=== PATIENT | female | born 1990 | race Caucasian/White ===

== ENCOUNTER → 2016-03-23 | Outpatient (CLI) | payer OTHER ==
[2016-03-23 13:53] LABS: BASO % 0.5 % (0.0-1.0); EOS # 0.2 K/mm3 (0.0-0.50); EOS % 2.6 % (0.0-3.0); LARGE UNSTAINED CELL # 0.2 K/mm3 (0.0-0.4); LARGE UNSTAINED CELL % 2.3 % (0.0-4.0); LYMPH # 1.1 K/mm3 (1.5-6.5); LYMPH % 16.8 % (24.0-44.0); MEAN CORPUSCULAR HEMOGLOBIN 30.3 pg (27.0-33.0); MEAN CORPUSCULAR HGB CONC 33.4 g/dl (32.0-36.5); MEAN CORPUSCULAR VOLUME 90.9 fl (80.0-96.0); MONO # 0.3 K/mm3 (0.0-0.8); MONO % 3.8 % (0.0-5.0); NEUTROPHILS # 4.9 K/mm3 (1.8-7.7); PLATELET COUNT, AUTOMATED 339 k/mm3 (150-450); RED CELL DISTRIBUTION WIDTH 12.4 % (11.5-14.5); WHITE BLOOD COUNT 6.7 K/mm3 (4.0-10.0)
== END ==
LOC: M LAB 12:08
PROVIDERS: ATTEND Obstetrics & Gynecology
DX: Z34.02 Encounter for supervision of normal first pregnancy, second trimester (principal)

== ENCOUNTER → 2016-04-12 | Outpatient (REF) | payer OTHER | LOC: M LAB REF 16:51 | PROVIDERS: ATTEND Advanced Practice Midwife | DX: Z34.03 Encounter for supervision of normal first pregnancy, third trimester (principal) ==

== ENCOUNTER → 2016-05-25 | Outpatient (REF) | payer OTHER | LOC: M LAB REF 13:22 | PROVIDERS: ATTEND Advanced Practice Midwife | DX: Z34.03 Encounter for supervision of normal first pregnancy, third trimester (principal) ==

== ENCOUNTER 2016-06-25 01:37 | Inpatient (IN) | payer OTHER ==
[2016-06-25] VITALS (9 sets, daily range): BP systolic 99–134; BP diastolic 50–80
[~2016-06-25] VITALS: Ht 162.6 cm; Wt 72.0 kg
[2016-06-25] MEDS ORDERED: PENICILLIN G POTASSIUM IV 5 MU in D5W MINI-BAG PLUS 100 ML IV STA (02:08)
[2016-06-25] MEDS ORDERED: LR 1,000 ML IV SCH (02:08)
[2016-06-25] MEDS ORDERED: LACTATED RINGER'S 1000 ML IV STA (02:08)
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
[2016-06-25] MEDS ORDERED: FENTANYL 2MCG/ML ROPIVACAINE 0.2% IN 0.9% NACL 200ML IVBAG As Ordered ONE (03:19)
[2016-06-25] MEDS ORDERED: NALOXONE INJ 0.4 MG/1 ML VIAL (J2310) IV PRN (04:07)
[2016-06-25] MEDS ORDERED: EPIDURAL COMMENT XX SCH (04:07)
[2016-06-25] MEDS ORDERED: diphenhydrAMINE INJ 50MG/ML VIAL (J1200) IV PRN (04:07)
[2016-06-25] MEDS ORDERED: ONDANSETRON 4MG/2ML VIAL (J2405) IV PRN (04:07)
[2016-06-25] MEDS ORDERED: REFRIGERATOR IV KEYS XX PRN (04:07)
[2016-06-25] MEDS ORDERED: LACTATED RINGER'S 1000 ML IV PRN (04:07)
[2016-06-25] MEDS ORDERED: FENTANYL/ROPIVACAINE/NACL BAG 200 ML EPIDURAL SCH (04:07)
[2016-06-25] MEDS ORDERED: ePHEDrine SULFATE 25 MG/5 ML(5MG/ML) SYRINGE IV PRN (04:07)
[2016-06-25] MEDS ORDERED: EPIDURAL/PCA KEYS XX PRN (04:07)
--- NOTE | 2016-06-25 04:40 | IPNPDOC ---
Date Seen The patient was seen on 06/25/16. Progress Note SUBJECTIVE: Patient reports she is comfortable with her epidural. OBJECTIVE: heart rate 1:30, moderate variability, positive accelerations, no decelerations. Contractions every 2-4 minutes. SVE: 5/90/0 station. AROM done after consent from patient to a scant amount of clear fluid. A moderate amount of bloody show noted. ASSESSMENT: IUP of 40 weeks 3 days gestation, active labor, category 1 heart rate tracing PLAN: Pitocin via IV ordered after counseling patient. Anticipate cervical change and spontaneous vaginal delivery. GURMEET PUGA CNM Jun 25, 2016 04:40
[2016-06-25] MEDS ORDERED: OXYTOCIN DRIP 30 UNITS in APPROPRIATE DILUENT 1 EA IV SCH (04:45)
[2016-06-25] MEDS ORDERED: PENICILLIN G POTASSIUM IV 2.5 MU in D5W 100 ML IV SCH (06:30)
[2016-06-25] MEDS: DOCUSATE SODIUM 100 MG CAP PO SCH ×2 (09:00→21:31)
[2016-06-25] MEDS: PRENATAL VITAMIN TAB PO SCH (09:00)
[2016-06-25] MEDS ORDERED: MEASLES,MUMPS,RUBELLA VACCINE INJ (MMR-II) (90707) SC SCH (10:00)
[2016-06-25] MEDS ORDERED: DIBUCAINE 1% OINTMENT 30GM TOP PRN (10:00)
[2016-06-25] MEDS ORDERED: METHYLERGONOVINE MALEATE 0.2 MG TAB PO PRN (10:00)
[2016-06-25] MEDS ORDERED: RHOGAM 300 MCG (1500 IU) INJ (J2790) IM SCH (10:00)
[2016-06-25] MEDS ORDERED: ACETAMINOPHEN 500 MG TAB PO PRN (10:00)
--- NOTE | 2016-06-25 10:34 | DN ---
DATE: 06/25/2016 Cherie is a 26-year-old female, 1, para 0 who was admitted at 40-3/7 weeks gestation in labor. She progressed to fully dilated after having an epidural with Pitocin augmentation with deep variable deceleration. She then pushed and delivered a live male infant in occiput posterior position with a nuchal cord times one. scores 8 and 9. weight 7 pounds. Placenta delivered spontaneously intact. Three-vessel cord. The second-degree midline laceration was noted, which was repaired using #2-0 chromic. Estimated blood loss 200 mL. Both mother and baby in stable condition.
[2016-06-25] MEDS: IBUPROFEN 800 MG TAB PO PRN ×2 (12:34→21:33)
[2016-06-26 05:27] VITALS: BP 123/62
[2016-06-26] MEDS: DOCUSATE SODIUM 100 MG CAP PO SCH (09:06)
[2016-06-26] MEDS: PRENATAL VITAMIN TAB PO SCH (09:06)
[2016-06-26 18:00] VITALS: BP 129/64
[2016-06-27 05:30] VITALS: BP 113/60
[2016-06-27] MEDS: DOCUSATE SODIUM 100 MG CAP PO SCH (07:35)
[2016-06-27] MEDS: PRENATAL VITAMIN TAB PO SCH (07:35)
[2016-06-27] MEDS ORDERED: TYLE500T78 PO (14:13)
[2016-06-27] MEDS ORDERED: PRENTAB55 PO (14:13)
[2016-06-27] MEDS ORDERED: IBUP800T23 PO (14:13)
== END 2016-06-27 17:15 | disposition home or self-care (01) | DRG 775 ==
LOC: M LDO 01:37 → M LDI 01:47 → M OBS 12:25
PROVIDERS: ADMIT Advanced Practice Midwife; ATTEND Obstetrics & Gynecology
PROC: 10E0XZZ Delivery of Products of Conception, External Approach (ICD-10-PCS; principal; 2016-06-25)
PROC: 0KQM0ZZ Repair Perineum Muscle, Open Approach (ICD-10-PCS; 2016-06-25)
PROC: 10907ZC Drainage of Amniotic Fluid, Therapeutic from Products of Conception, Via Natural or Artificial Opening (ICD-10-PCS; 2016-06-25)
DX: O48.0 Post-term pregnancy (principal); O99.824 Streptococcus B carrier state complicating childbirth; Z3A.40 40 weeks gestation of pregnancy; O69.81X0 Labor and delivery complicated by cord around neck, without compression, not applicable or unspecified; O70.1 Second degree perineal laceration during delivery; Z37.0 Single live birth; Z86.79 Personal history of other diseases of the circulatory system

== ENCOUNTER → 2016-11-24 | Outpatient (REF) | payer OTHER ==
[~2016-11-24] MED LIST: IBUP1TAB7 PO; PRENTAB55 PO; TYLE500T78 PO
[2016-11-24 19:25] LABS: PERCENT SATURATION 18.2 % (13.2-45.0)
== END ==
LOC: M LAB REF 14:55
PROVIDERS: ATTEND Internal Medicine
DX: R42 Dizziness and giddiness (principal); D64.9 Anemia, unspecified

== ENCOUNTER → 2017-07-14 | Outpatient (REF) | payer OTHER | LOC: M LAB REF 17:14 | DX: N76.0 Acute vaginitis (principal) | CPT/HCPCS: 87070 ==

== ENCOUNTER → 2017-11-30 | Outpatient (REF) | payer OTHER ==
[2017-11-30 08:45] LABS: URINE PREG TEST NEGATIVE (NEGATIVE)
[2017-11-30 08:46] LABS: CONTROL LINE UCG INT CTR LINE PRESENT
== END ==
LOC: M LABNEURO 08:05
DX: Z36.89 Encounter for other specified antenatal screening (principal)
CPT/HCPCS: 84703

== ENCOUNTER → 2017-12-14 | Outpatient (REF) | payer OTHER ==
[2017-12-14 17:59] LABS: CONTROL LINE HCG INT CTR LINE PRESENT; HCG, SERUM QUALITATIVE NEGATIVE (NEGATIVE)
[2017-12-19 00:07] LABS: CERULOPLASMIN 27.5 mg/dL (19.0-39.0); COPPER PLASMA 115 ug/dL (72-166); MERCURY LEVEL 1.5 ug/L (0.0-14.9)
[2017-12-19 00:07] LABS: LEAD BLOOD ADULT <1 ug/dL (0-4)
== END ==
LOC: M LAB REF 16:34
DX: G62.9 Polyneuropathy, unspecified (principal)

== ENCOUNTER → 2017-12-28 | Outpatient (REF) | payer OTHER ==
[2017-12-28 19:20] LABS: CONTROL LINE HCG INT CTR LINE PRESENT; HCG, SERUM QUALITATIVE NEGATIVE (NEGATIVE)
== END ==
LOC: M LAB REF 17:49
DX: Z01.812 Encounter for preprocedural laboratory examination (principal)
CPT/HCPCS: 84703

== ENCOUNTER → 2018-01-11 | Outpatient (REF) | payer OTHER ==
[2018-01-11 14:20] LABS: HEMATOCRIT 40.7 % (36.0-47.0); HEMOGLOBIN 13.6 g/dl (12.0-15.5); MEAN CORPUSCULAR HEMOGLOBIN 30.8 pg (27.0-33.0); MEAN CORPUSCULAR HGB CONC 33.4 g/dl (32.0-36.5); MEAN CORPUSCULAR VOLUME 92.1 fl (80.0-96.0); PLATELET COUNT, AUTOMATED 291 10^3/uL (150-450); RED BLOOD COUNT 4.42 10^6/uL (4.00-5.40); RED CELL DISTRIBUTION WIDTH 12.7 % (11.5-14.5); WHITE BLOOD COUNT 6.4 10^3/uL (4.0-10.0)
[2018-01-11 14:54] LABS: HCG, SERUM QUANTITATIVE 3575 MIU/ML
[2018-01-12 10:38] LABS: RUBELLA IgG QUALITATIVE IMMUNE (IMMUNE)
[2018-01-12 10:39] LABS: HBsAg Prenatal NEGATIVE (NEGATIVE)
[2018-01-12 11:07] LABS: HEPATITIS C VIRUS ABY INDEX < 0.0 INDEX (<0.8)
[2018-01-12 11:08] LABS: HIV 1&2 SCREEN CENTAUR NEGATIVE (NEGATIVE)
== END ==
LOC: M LAB REF 13:14
DX: O36.80X0 Pregnancy with inconclusive fetal viability, not applicable or unspecified (principal)
CPT/HCPCS: 86762

== ENCOUNTER → 2018-02-07 | Outpatient (REF) | payer OTHER ==
[2018-02-07 14:59] LABS: CHLAMYDIA DNA AMPLIFICATION NEGATIVE (NEGATIVE); GC DNA AMPLIFICATION NEGATIVE (NEGATIVE)
== END ==
LOC: M LAB REF 13:07
DX: Z36.89 Encounter for other specified antenatal screening (principal)
CPT/HCPCS: 87591

== ENCOUNTER → 2018-04-06 | Outpatient (CLI) | payer OTHER | LOC: M SMT 08:35 | PROVIDERS: ATTEND Advanced Practice Midwife | DX: Z13.79 Encounter for other screening for genetic and chromosomal anomalies (principal) ==

== ENCOUNTER → 2018-04-12 | Outpatient (CLI) | payer OTHER ==
--- NOTE | 2018-04-12 20:50 | REP ---
Clinical: Anatomical evaluation. Comparison: None . Findings: Examination demonstrates a single live intrauterine in variable presentation. motion is identified by technologist. Placenta is noted posterior and grade grade zero without evidence for placenta previa or abruption. Amniotic fluid volume is normal. Cervix measures 4.8 cm in length and appears closed. No evidence for nuchal cord. Gestational age by LMP 18 weeks 3 days with JOLEEN 09/10/1988 . Gestational age by current measurements 18 weeks 5 days with JOLEEN 09/06/2018 . FHR equals 139 beats per minute. BPD 4.1 cm 18 weeks 3 days HC 14.9 cm 18 weeks 0 days AC 13.9 cm 19 weeks 2 days FL 2.8 cm 18 weeks 3 days HL 2.9 cm 19 weeks 3 days HC/AC ratio 1.07 Estimated weight 250 grams ( 860-second percentile). Anatomical assessment demonstrates normal structures including cranium, choroid plexus, cavum, cerebellum/posterior fossa, facial features, diaphragm, stomach, cord insertion, bladder, and extremities. A two-vessel cord (single umbilical artery) identified. Limited evaluation of the lungs, heart/ventricular outflow tracts, kidneys and spine. Impression: Single live intrauterine in variable presentation demonstrating appropriate interval growth. Two-vessel cord and anatomical limitations as noted above may warrant reevaluation and follow-up. Electronically Signed by Jose Bosch MD 04/12/2018 08:42 P
== END ==
LOC: M RAD 17:45
PROVIDERS: ATTEND Advanced Practice Midwife
DX: Z34.82 Encounter for supervision of other normal pregnancy, second trimester (principal); Z36.89 Encounter for other specified antenatal screening; Z3A.18 18 weeks gestation of pregnancy

== ENCOUNTER → 2018-05-25 | Outpatient (CLI) | payer OTHER ==
--- NOTE | 2018-05-25 13:51 | REP ---
Obstetric sonography: History: Supervision of . Followup anatomy. Lungs, heart, kidneys, spine. Findings: Scanning through the gravid uterus demonstrates a viable single intrauterine gestation in a cephalic lie. motion is observed and heart rate is recorded at 154 beats per minute. A posterior grade 0 placenta is seen without evidence of previa or abruption. Amniotic fluid is subjectively normal. Closed cervical length is 4.0 cm. No extrauterine abnormalities observed. There has been appropriate interval growth. A single artery umbilical cord is noted. No abnormality is seen. The following anatomic structures are identified and felt to be unremarkable today: cranium, choroid plexus, cavum, cerebellum and posterior fossa, face and profile, lungs, four-chamber heart with left and right ventricular outflow tract views, diaphragm, left-sided stomach, abdominal wall cord insertion, kidneys and bladder, spine, and upper and lower extremities. Biometry chart: BPD 6.0 cm = 24 weeks 3 days Head circumference 22.7 cm = 24 weeks 5 days Abdominal circumference 21.4 cm = 25 weeks 6 days Femur length 4.5 cm = 25 weeks 0 days Humeral length 4.3 cm = 25 weeks 4 days HC/AC ratio normal 1.06. Cephalic index normal 0.72. Estimated weight 802 grams, 1 pound 12 ounces, 66 percentile for 24 weeks 4 days. Impression: Viable single intrauterine gestation at 24 weeks 4 days by today's composite sonographic criteria. Expected gestational age estimate based on prior sonography is 24 weeks 6 days. JOLEEN by prior sonography September 08, 2018. anatomic survey is felt to be complete. Single umbilical artery cord noted. Electronically Signed by Asaf Sage MD 05/25/2018 06:18 P
== END ==
LOC: M RAD 11:57
PROVIDERS: ATTEND Advanced Practice Midwife
DX: Z34.82 Encounter for supervision of other normal pregnancy, second trimester (principal); Z3A.24 24 weeks gestation of pregnancy

== ENCOUNTER → 2018-06-27 | Outpatient (CLI) | payer OTHER ==
[2018-06-27 10:38] LABS: HEMATOCRIT 37.8 % (36.0-47.0); HEMOGLOBIN 12.4 g/dl (12.0-15.5); MEAN CORPUSCULAR HGB CONC 32.8 g/dl (32.0-36.5); MEAN CORPUSCULAR VOLUME 94.5 fl (80.0-96.0); PLATELET COUNT, AUTOMATED 214 10^3/uL (150-450)
== END ==
LOC: M SMT 08:04
PROVIDERS: ATTEND Advanced Practice Midwife
DX: Z34.82 Encounter for supervision of other normal pregnancy, second trimester (principal)

== ENCOUNTER 2018-07-13 08:40 | Emergency (ER) | payer OTHER ==
[~2018-07-13] VITALS: Ht 162.6 cm; Wt 63.6 kg
[2018-07-13] MEDS ORDERED: PYRIDOXINE 50 MG TAB PO SCH (09:00)
[2018-07-13] MEDS ORDERED: NS 1,000 ML IV ONE (09:15)
[2018-07-13 09:48] LABS: BASO % 0.4 % (0.0-1.0); EOS # 0.1 10^3/uL (0.0-0.50); EOS % 1.6 % (0.0-3.0); HEMATOCRIT 35.7 % (36.0-47.0); HEMOGLOBIN 12.3 g/dl (12.0-15.5); LYMPH # 1.3 10^3/uL (1.5-6.5); LYMPH % 23.9 % (24.0-44.0); MEAN CORPUSCULAR HEMOGLOBIN 31.2 pg (27.0-33.0); MEAN CORPUSCULAR HGB CONC 34.5 g/dl (32.0-36.5); MEAN CORPUSCULAR VOLUME 90.6 fl (80.0-96.0); MONO # 0.6 10^3/uL (0.0-0.8); MONO % 10.3 % (0.0-5.0); NEUTROPHILS # 3.5 10^3/uL (1.8-7.7); NEUTROPHILS % 63.3 % (36.0-66.0); PLATELET COUNT, AUTOMATED 183 10^3/uL (150-450); RED BLOOD COUNT 3.94 10^6/uL (4.00-5.40); WHITE BLOOD COUNT 5.5 10^3/uL (4.0-10.0)
[2018-07-13] MEDS ORDERED: DICL10TA PO (10:07)
[2018-07-13 10:12] LABS: ALBUMIN 2.4 GM/DL (3.2-5.2); ALT/SGPT 30 U/L (12-78); BILIRUBIN,DIRECT 0.2 MG/DL (0.0-0.2); BILIRUBIN,TOTAL 0.4 MG/DL (0.2-1.0); BLOOD UREA NITROGEN 7 MG/DL (7-18); CALCIUM LEVEL 7.7 MG/DL (8.5-10.1); CARBON DIOXIDE LEVEL 25 MEQ/L (21-32); CHLORIDE LEVEL 106 MEQ/L (98-107); GLOMERULAR FILTRATION RATE > 60.0 (>60); GLUCOSE, FASTING 81 MG/DL (70-100); LIPASE 147 U/L (73-393); POTASSIUM SERUM 3.4 MEQ/L (3.5-5.1); SODIUM LEVEL 138 MEQ/L (136-145); TOTAL PROTEIN 5.9 GM/DL (6.4-8.2)
[2018-07-13] MEDS ORDERED: KEFL500C17 PO (12:08)
[2018-07-13] MEDS ORDERED: PYRI25TA2 PO (12:14)
[2018-07-13 12:21] VITALS: BP 109/59
[2018-07-13] MEDS ORDERED: CLOTCRE3 TOP (12:22)
== END 2018-07-13 12:29 | disposition home or self-care (01) ==
LOC: M ED 08:40
DX: O23.43 Unspecified infection of urinary tract in pregnancy, third trimester (principal); O99.613 Diseases of the digestive system complicating pregnancy, third trimester; Z3A.31 31 weeks gestation of pregnancy; Z79.899 Other long term (current) drug therapy

== ENCOUNTER → 2018-08-15 | Outpatient (REF) | payer OTHER ==
[~2018-08-15] MED LIST changes: +CLOTCRE3 TOP; +DICL10TA PO; +KEFL500C17 PO; +PYRI25TA2 PO
== END ==
LOC: M LAB REF 12:58
PROVIDERS: ATTEND Advanced Practice Midwife
DX: O36.8930 Maternal care for other specified fetal problems, third trimester, not applicable or unspecified (principal); Z3A.36 36 weeks gestation of pregnancy

== ENCOUNTER 2018-09-17 11:11 | Inpatient (IN) | payer OTHER ==
[2018-09-17] VITALS (33 sets, daily range): BP systolic 99–133; BP diastolic 56–80
[~2018-09-17] VITALS: Ht 162.6 cm; Wt 70.6 kg
[2018-09-17] MEDS ORDERED: LACTATED RINGER'S 1000 ML IV STA (11:17)
[2018-09-17] MEDS ORDERED: OXYTOCIN DRIP 30 UNITS in APPROPRIATE DILUENT 1 EA IV SCH ×2 (11:30→23:08)
[2018-09-17] MEDS ORDERED: MAPA500T2 PO (11:34)
[2018-09-17] MEDS ORDERED: ZANTTAB PO (11:34)
[2018-09-17 12:15] LABS: HEMATOCRIT 34.8 % (36.0-47.0); HEMOGLOBIN 11.4 g/dl (12.0-15.5); MEAN CORPUSCULAR HEMOGLOBIN 29.2 pg (27.0-33.0); MEAN CORPUSCULAR HGB CONC 32.8 g/dl (32.0-36.5); PLATELET COUNT, AUTOMATED 190 10^3/uL (150-450); RED BLOOD COUNT 3.91 10^6/uL (4.00-5.40); WHITE BLOOD COUNT 7.2 10^3/uL (4.0-10.0)
[2018-09-17] MEDS: LR 1,000 ML IV SCH ×2 (12:22→17:54)
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
--- NOTE | 2018-09-17 16:46 | IPNPDOC ---
Obstetrical Progress Note Date of Service Sep 17, 2018 Subjective Patient reports she feels some ocntractions but reports she is able to sleep through them. Objective Vital Signs Date Time Temp Pulse Resp B/P (MAP) Pulse Ox O2 Delivery O2 Flow Rate FiO2 09/17/18 15:26 61 16 119/65 (83) 09/17/18 11:30 99.1 Assessment Heart Rate (FHR): 130 Variability: Moderate Accelerations: Positive Decelerations: None Heart Rate Tracing: Category I Tocometer Contractions: Yes Frequency: other (2 to 4 minutes. ) Sterile Vaginal Examination Dilation: 4 cm Effacement (%): other (75%) Station: -1 Cervical Consistency: Soft Cervical Position: Middle Postion/Presentation: Cephalic presentation Assessment and Plan EGA at Admission: 40.6 Status: Reassuring Group B Streptococcus: Negative Anticipate: Vaginal Delivery Additional Comments IV Pitocin at 16 mu/hour. AROM to a moderate amount of clear fluid. GURMEET PUGA CNM Sep 17, 2018 16:46
[2018-09-17] MEDS ORDERED: FENTANYL 2MCG/ML ROPIVACAINE 0.2% IN 0.9% NACL 100ML IVBAG As Ordered ONE (17:34)
[2018-09-17] MEDS ORDERED: ePHEDrine SULFATE 25 MG/5 ML(5MG/ML) SYRINGE IV PRN (18:45)
[2018-09-17] MEDS ORDERED: NALOXONE INJ 0.4 MG/1 ML VIAL (J2310) IV PRN (18:45)
[2018-09-17] MEDS ORDERED: EPIDURAL COMMENT XX SCH (18:45)
[2018-09-17] MEDS ORDERED: FENTANYL/ROPIVACAINE/NACL BAG 100 ML EPIDURAL SCH (18:45)
[2018-09-17] MEDS ORDERED: ONDANSETRON 4MG/2ML VIAL (J2405) IV PRN (18:45)
[2018-09-17] MEDS ORDERED: LACTATED RINGER'S 1000 ML IV PRN (18:45)
[2018-09-17] MEDS ORDERED: REFRIGERATOR IV KEYS XX PRN (18:45)
[2018-09-17] MEDS ORDERED: diphenhydrAMINE INJ 50MG/ML VIAL (J1200) IV PRN (18:45)
[2018-09-17] MEDS ORDERED: EPIDURAL/PCA KEYS XX PRN (18:45)
--- NOTE | 2018-09-17 23:07 | DNPDOC ---
[facility] Delivery Note Delivery Note DATE OF DELIVERY: 09/17/18 at 2238 PREDELIVERY DIAGNOSIS: 40-6/7 weeks' gestation and labor. POST DELIVERY DIAGNOSIS: Delivered. PROCEDURE: Spontaneous vaginal delivery Provider: Gurmeet Dasilva CNM, NABEEL ANESTHESIA: epidural. ESTIMATED BLOOD LOSS: 350 mL. FINDINGS: 7 pounds 9 ounces; 3440 grams; male , Score 9/9, nuchal cord times 1 tight; 2-vessel cord. DELIVERY SUMMARY: Patient is a 28-year-old female who is now a at 40.6 weeks gestation who presented to L&D for IOL. She received IV Pitocin for her IOL. She received an epidural for pain management. The patient progressed to fully dilated at 2116. She pushed to a living male in the DEBRA position with restitution to ROT at 8. A 2-vessel cord was noted. The anterior shoulder delivered with ease and the corpus immediately followed. The baby was placed on the maternal abdomen active and crying. The cord was clamped x 2 and cut by the FOB after pulsation had ceased. The placenta delivered spontaneously and intact at 2243. Uterine hemostasis was achieved via rapid infusion of IV Pitocin and fu ndal massage. The vagina, perineum, and cervix was inspected and found to have a 1st degree perineal laceration that was repaired with a 3.0 Vicryl. Mom plans to breast feed. they are naming their Ambrosio. Both mom and baby are in stable condition. GURMEET DASILVA CNM Sep 17, 2018 23:07
[2018-09-17] MEDS ORDERED: DIBUCAINE 1% OINTMENT 30GM TOP PRN (23:15)
[2018-09-17] MEDS ORDERED: ACETAMINOPHEN TAB 650MG DOSE (2X325MG) PO PRN (23:15)
[2018-09-17] MEDS ORDERED: IBUPROFEN 800 MG TAB PO PRN (23:15)
[2018-09-17] MEDS ORDERED: METHYLERGONOVINE MALEATE 0.2 MG TAB PO PRN (23:15)
[2018-09-17] MEDS ORDERED: MEASLES,MUMPS,RUBELLA VACCINE INJ (MMR-II) (90707) SC SCH (23:15)
[2018-09-17] MEDS ORDERED: DOCUSATE SODIUM 100 MG CAP PO PRN (23:15)
[2018-09-17] MEDS ORDERED: ACETAMINOPHEN 500 MG TAB PO PRN (23:15)
[2018-09-17] MEDS ORDERED: RHOGAM 300 MCG (1500 IU) INJ (J2790) IM SCH (23:15)
[2018-09-18 01:32] VITALS: BP 109/56
[2018-09-18 06:51] VITALS: BP 113/68
[2018-09-18] MEDS: IBUPROFEN 600 MG TAB PO PRN ×2 (07:35→17:10)
[2018-09-18] MEDS: PRENATAL VITAMINS CHEWABLE TABLET PO SCH (07:35)
[2018-09-18] MEDS: ANUSOL HC CREAM 30GM TOP PRN (07:37)
--- NOTE | 2018-09-18 08:05 | NUR ---
PPD#1 S: Doing well w/o complaints. O: vss, AF Gen: well appearing abd: soft, nttp, FF@u-2 ext: neg calf tenderness A/P: PPD# 1 s/p -recovering in stable condition -cont routine care Suma Farah MD
[2018-09-18 18:00] VITALS: BP 126/72
[2018-09-18] MEDS ORDERED: CALCIUM CARBONATE 500 MG CHEW U/D PO PRN (18:00)
[2018-09-19] MEDS: IBUPROFEN 600 MG TAB PO PRN (05:20)
[2018-09-19 06:00] VITALS: BP 110/70
[2018-09-19] MEDS ORDERED: ACET-683 PO (07:43)
[2018-09-19] MEDS ORDERED: IBUP80TA PO (07:43)
[2018-09-19] MEDS: PRENATAL VITAMINS CHEWABLE TABLET PO SCH (09:00)
[2018-09-19] MEDS: ANUSOL HC CREAM 30GM TOP PRN (11:38)
== END 2018-09-19 12:40 | disposition home or self-care (01) | DRG 807 ==
LOC: M LDI 11:11 → M OBS 09-18 01:17
PROVIDERS: ADMIT Advanced Practice Midwife; ATTEND Advanced Practice Midwife
PROC: 10E0XZZ Delivery of Products of Conception, External Approach (ICD-10-PCS; principal; 2018-09-17)
PROC: 0HQ9XZZ Repair Perineum Skin, External Approach (ICD-10-PCS; 2018-09-17)
PROC: 3E033VJ Introduction of Other Hormone into Peripheral Vein, Percutaneous Approach (ICD-10-PCS; 2018-09-17)
DX: O48.0 Post-term pregnancy (principal); Z37.0 Single live birth; O70.0 First degree perineal laceration during delivery; Z3A.40 40 weeks gestation of pregnancy